=== PATIENT | female | born 1960 | race African-American/Black ===

== ENCOUNTER 2022-02-13 13:33 | Emergency (ER) | payer OTHER ==
[~2022-02-13] VITALS: Ht 149.9 cm; Wt 81.4 kg
[2022-02-13] MEDS ORDERED: LISI-894 PO (13:55)
[2022-02-13] MEDS ORDERED: TRAZ-252 PO (13:55)
[2022-02-13] MEDS ORDERED: CLON0.1T2 PO (13:55)
[2022-02-13] MEDS ORDERED: HYDR-4061 PO (14:07)
[2022-02-13] MEDS ORDERED: DIPH50CA35 PO (14:08)
[2022-02-13] MEDS ORDERED: PRAZ2 PO (14:08)
[2022-02-13] MEDS ORDERED: MIRT-93 PO (14:08)
[2022-02-13] MEDS ORDERED: IBUPROFEN 400 MG TABLET PO ONE (14:45)
[2022-02-13] MEDS ORDERED: ACETAMINOPHEN 325 MG TABLET PO ONE (14:45)
[2022-02-13] MEDS ORDERED: LIDOCAINE 5% TRANSDERMAL PATCH TD ONE (14:45)
[2022-02-13] MEDS ORDERED: IBUP-1506 PO ×2 (17:09)
[2022-02-13] MEDS ORDERED: ACET-3385 PO (17:10)
[2022-02-13 17:29] VITALS: BP 142/76
== END 2022-02-13 17:31 | disposition home or self-care (01) ==
LOC: EMS 13:34
DX: M54.50 Low back pain, unspecified (principal); I10 Essential (primary) hypertension; F12.90 Cannabis use, unspecified, uncomplicated; F17.210 Nicotine dependence, cigarettes, uncomplicated; Z79.899 Other long term (current) drug therapy; W18.39XA Other fall on same level, initial encounter; Y93.89 Activity, other specified; Y92.89 Other specified places as the place of occurrence of the external cause; Y99.8 Other external cause status
CPT/HCPCS: 72100; 72202; 99284; Z7502; Z7610

== ENCOUNTER 2022-04-05 15:05 | Emergency (ER) | payer OTHER ==
[~2022-04-05] VITALS: Ht 149.9 cm; Wt 86.4 kg
[~2022-04-05 15:05] MED LIST: ACET-3385 PO; CLON0.1T2 PO; DIPH50CA35 PO; HYDR-4061 PO; IBUP-1506 PO; LISI-894 PO; MIRT-93 PO; PRAZ2 PO; TRAZ-252 PO
[2022-04-05 17:17] LABS: COVID AG,FIA SOURCE NASAL SWAB
[2022-04-05 17:19] LABS: INFLUENZA TYPE A NEGATIVE FOR TYPE A (NEGATIVE); INFLUENZA TYPE B NEGATIVE FOR TYPE B (NEGATIVE)
[2022-04-05] MEDS ORDERED: ACETAMINOPHEN 650 MG/20.3 ML SOLUTION UDCUP PO ONE (17:30)
[2022-04-05] MEDS ORDERED: KETOROLAC TROMETHAMINE 30 MG/ML VIAL IVP ONE (17:30)
[2022-04-05] MEDS ORDERED: SODIUM CHLORIDE 0.9% 1,000 ML IV ONE (17:30)
[2022-04-05] MEDS ORDERED: ACETAMINOPHEN 500 MG TABLET PO ONE (17:30)
[2022-04-05] MEDS ORDERED: KETOROLAC TROMETHAMINE 30 MG/ML VIAL IM ONE (17:30)
[2022-04-05] MEDS ORDERED: GABA-1181 PO (17:33)
[2022-04-05 17:55] VITALS: BP 164/98
[2022-04-05] MEDS ORDERED: IBUP-2070 PO (18:25)
[2022-04-05] MEDS ORDERED: ACET-66 PO (18:25)
== END 2022-04-05 18:38 | disposition home or self-care (01) ==
LOC: EMS 15:08
DX: B34.9 Viral infection, unspecified (principal); I10 Essential (primary) hypertension; F17.210 Nicotine dependence, cigarettes, uncomplicated; Z79.899 Other long term (current) drug therapy; Z20.822 Contact with and (suspected) exposure to COVID-19
CPT/HCPCS: 99283; 96374; 96361; 87426; 87804; J1885; J7030

== ENCOUNTER 2025-07-05 15:25 | Emergency (ER) | payer OTHER ==
[~2025-07-05] VITALS: Ht 154.9 cm; Wt 86.4 kg
[~2025-07-05 15:25] MED LIST changes: -ACET-3385 PO; +ACET-66 PO; +GABA-1181 PO; -HYDR-4061 PO; +IBUP-1492 PO; -IBUP-1506 PO; -MIRT-93 PO
[2025-07-05 15:34] VITALS: BP 172/72; PULSE 78; RESP 18; TEMP 98.6; O2SAT 99
[2025-07-05] MEDS ORDERED: HYDR-4065 PO (15:41)
[2025-07-05] MEDS: HYDROCODONE/ACETAMINOPHEN 5-325 MG TABLET PO ONE (16:08)
[2025-07-05] MEDS: KETOROLAC TROMETHAMINE 30 MG/ML VIAL IM ONE (17:37)
[2025-07-05] MEDS ORDERED: TRAM50TA5 PO (17:53)
== END 2025-07-05 18:14 | disposition home or self-care (01) ==
LOC: EMS 15:25
DX: S63.501A Unspecified sprain of right wrist, initial encounter (principal); M19.90 Unspecified osteoarthritis, unspecified site; I10 Essential (primary) hypertension; F17.210 Nicotine dependence, cigarettes, uncomplicated; Z98.890 Other specified postprocedural states; Z79.899 Other long term (current) drug therapy; W23.0XXA Caught, crushed, jammed, or pinched between moving objects, initial encounter; Y93.89 Activity, other specified; Y92.89 Other specified places as the place of occurrence of the external cause; Y99.8 Other external cause status
CPT/HCPCS: 99284; 73090; 73110; 73130; 29125; 96372; J1885